=== PATIENT | male | born 1950 | race Caucasian/White ===

== ENCOUNTER 2018-06-27 13:14 | Day surgery (SDC) | payer OTHER ==
[2018-06-27] MEDS ORDERED: LIDOCAINE 1% 2 ML INJ ID PRN (13:52)
[2018-06-27] MEDS ORDERED: LR 1,000 ML IV ONE (13:52)
[2018-06-27] MEDS ORDERED: BUPIVACAINE/EPI 0.5% 30 ML SDV ONE (14:50)
[2018-06-27] MEDS ORDERED: IOPAMIDOL (ISOVUE-M 300) 15 ML VIAL ONE (14:51)
[2018-06-27] MEDS ORDERED: ceFAZolin 2 GM/DEXTROSE 100 ML IV ONE (15:20)
--- NOTE | 2018-06-27 15:21 | PDHPUP ---
History & Physical Update H&P update statement: This history and physical update is based on an assessment of the patient which was completed after admission or registration (within 24 hours), but prior to the surgery/procedure. H&P update: H&P reviewed & patient examined, no change in patient's condition since H&P completed
--- NOTE | 2018-06-27 15:21 | PDANEPAE ---
ANE Past Medical History - Cardiovascular History Hx Hypertension: Yes Hx CHF / Valvular Disease: Yes Cardiovascular History Comment: av [id number] - Pulmonary History Hx Asthma/Reactive Airway Disease: Yes Hx Sleep Apnea: No - Renal History Hx Renal Disorders: Yes ANE Review of Systems Review of Systems: ANE Patient History - Allergies Allergies/Adverse Reactions: hydrochlorothiazide Allergy (Verified 06/27/18 13:51) - Home Medications Home Medications: Albuterol 06/27/18 [Last Taken 06/27/18] Amlodipine Besylate 06/27/18 [Last Taken 06/27/18] Atorvastatin Calcium 06/27/18 [Last Taken 06/26/18] Furosemide 06/27/18 [Last Taken 06/27/18] Losartan Potassium 06/27/18 [Last Taken 06/26/18] Pantoprazole Sodium 06/27/18 [Last Taken 06/27/18] Silodosin 06/27/18 [Last Taken 06/26/18] Spironolactone 06/27/18 [Last Taken 06/27/18] Topiramate 06/27/18 [Last Taken 06/27/18] Warfarin Sodium 06/27/18 [Last Taken 06/20/18] oxyCODONE IR 06/27/18 [Last Taken 06/26/18] - NPO status NPO Since - Liquids (Date): 06/27/18 NPO Since - Liquids (Time): 08:00 NPO Since - Solids (Date): 06/27/18 NPO Since - Solids (Time): 06:30 ANE Labs/Vital Signs - Vital Signs Blood Pressure: 152/79 Heart Rate: 52 Respiratory Rate: 18 O2 Sat (%): 100 Height: 187.96 cm Weight: 90.718 kg ANE Physical Exam - Airway Mallampati Score: Class 1 - ASA Status ASA Status: III ANE Anesthesia Plan Anesthesia Plan: general endotracheal anesthesia
[2018-06-27] MEDS ORDERED: fentaNYL 100 MCG/2 ML INJ ONE ×3 (15:25→17:27)
[2018-06-27] MEDS ORDERED: PROPOFOL 200 MG/20 ML VIAL ONE (15:25)
[2018-06-27] MEDS ORDERED: ONDANSETRON 4 MG/2 ML VIAL ONE (15:26)
[2018-06-27] MEDS ORDERED: ROCURONIUM 50 MG/5 ML VIAL ONE (15:26)
[2018-06-27] MEDS ORDERED: METOCLOPRAMIDE 10 MG/2 ML VIAL ONE (15:26)
[2018-06-27] MEDS ORDERED: MIDAZOLAM 2 MG/2 ML VIAL ONE (15:28)
[2018-06-27] MEDS ORDERED: SUGAMMADEX SODIUM 200 MG/2 ML VIAL IVP ONE (16:37)
--- NOTE | 2018-06-27 16:50 | SUROPNOTE ---
[facility] Operative Report - Surgery Date: 06/27/18 Pre-operative Diagnosis: T8 Vertebral Compression Fracture Post-operative Diagnosis: Same Procedures: T8 Kyphoplasty T8 Vertebral body biopsy Surgeon: Adrian Horton MD Anesthesia: General endotracheal anesthesia Findings: As expected Estimated Blood Loss: 1mL Drains: None Specimens: Vertebral bone biopsy Complications: None Condition: Transferred to PACU in stable condition Implants: Medtronic Kyphon kyphoplasty system, bilateral Indications: The patient sustained a compression fracture, diagnosed by radiographic imaging. I have explained all options of treatment for the patient, and the patient has elected to proceed with operative management after having failed all conservative options. I have explained all risks, benefits, and alternatives of the proposed procedure. The risks that we have discussed include , paralysis blindness, extravasation of cement, nerve damage, infection, dural tear, failure of surgery to alleviate pre-operative symptoms, and possible need for further operation. In addition to the aforementioned procedure, I also discussed with the patient that other procedures may be indicated during the course of surgery that would be considered in the patients best interest. The patient has expressed understanding of this. Pre-operative: The proposed incision site was marked in the pre-operative holding area by me. The patient was then taken to the operating room in stable condition. Following smooth induction of general anesthesia, the patient was positioned prone on a Marcell table in mild reverse Trendelenburg with all down surfaces well-padded. The patient was then prepped and draped in the usual sterile fashion. Pre- operative antibiotics were administered within one hour of the incision. A surgical timeout was performed, and all parties involved in the procedure were in agreement on the correct patient, location, and procedure to be performed. Spinal pause: A needle was used with AP and lateral fluoroscopy to identify the operative level. The appearance of the vertebra on lateral xray was apparent due to the degree of compression. The operative level was also identified by counting up from a prior compression fx at T11. A secondary spinal pause was then performed , and the level was confirmed with all parties participating in the operation. The skin was marked for the proposed incision. Surgical approach: The skin was then incised sharply through the dermis. The trocar was then introduced into the pedicle based on fluoroscopy. At this time the trocar was then passed into the pedicle past the level of the posterior endplate of the vertebral body. This was subsequently removed and the docking trocar was left in place. A hand drill was then used to create a channel to the anterior vertebral endplate. The drill was then subsequently removed. A smooth trocar was then introduced to remove any bony debris or trabeculae that might compromise the balloon. Vertebral body biopsy: A hollow core biopsy device was then tamped into the vertebral body. The needle was then drawn back, and a core biopsy of good quality was obtained. This was sent for pathology. Cementation: A Rapid V[employer]tr[employer] Kyphon balloon was then introduced into the channel that was created from the trocar. In similar fashion, the contralateral balloon was introduced as well. The balloons were then inflated in alternating fashion and this was monitored by fluoroscopy to ensure proper endplate height confucianism. They were inflated up on each side, and the amount of contrast was recorded.Final radiographs confirmed proper vertebral height confucianism. The balloons were then removed. Cement was then injected into the vertebral body through the cavity created by the balloon. Fluoroscopic confirmation was performed done every 0.5 mL to confirm that none of the cement had extravasated posteriorly or passed any of the endplates. Once the cement was allowed to harden, this was confirmed by probing them directly. All incisions were then removed and final x-rays were taken and there was no pathologic placement of cement. Taoism of vertebral height was maintained throughout the case. Closure: Sterile glue was then applied to the trocar sites. A sterile island dressing was applied over the surgical incision. A surgical count was performed before initiation of closure and following the procedure, and all were correct. I was present for the entire procedure. Recovery: The patient was extubated uneventfully in the operating room. The patient was taken to the recovery room in stable condition. Sequential compression devices for VTE prophylaxis were applied to the patients lower extremities, and were ordered to be used while the patient was non-ambulatory. Chemical VTE prophylaxis was considered to be contraindicated for this patient because of the risk of bleeding near the epidural space. Rajeev Horton MD
[2018-06-27] MEDS ORDERED: LR 500 ML IV PRN (16:52)
[2018-06-27] MEDS ORDERED: ALBUTEROL 3 ML DEYVIAL IH PRN (16:52)
[2018-06-27] MEDS ORDERED: NALOXONE HCL 0.4 MG/ML INJ IVP PRN (16:52)
--- NOTE | 2018-06-27 16:53 | POSTANESTH ---
Post Anesthetic Evaluation Cardiovascular Status: Similar to Pre-Op Cond Respiratory Status: Similar to Pre-op Cond. Level of Consciousness/Mental Status: Can Participate in Eval Pain Control: Adequate, Prn Tx Ordered Nausea/Vomiting Control: Adequate, Prn Tx Ordered Complications Possibly Related to Anesthesia: None Noted
[2018-06-27] MEDS: fentaNYL 100 MCG/2 ML INJ IVP PRN ×4 (17:01→18:09)
[2018-06-27] MEDS ORDERED: oxyCODONE IR 5 MG TAB PO ONE (18:15)
[2018-06-27] MEDS ORDERED: ACETAMINOPHEN 325 MG TAB PO ONE (18:15)
[2018-06-27 18:47] VITALS: BP 136/90
== END 2018-06-27 19:00 | disposition home or self-care (01) ==
LOC: FSGY 13:14
PROVIDERS: ATTEND Orthopaedic Surgery Orthopaedic Surgery of the Spine
DX: M80.08XA Age-related osteoporosis with current pathological fracture, vertebra(e), initial encounter for fracture (principal); J45.909 Unspecified asthma, uncomplicated; K21.9 Gastro-esophageal reflux disease without esophagitis; M06.9 Rheumatoid arthritis, unspecified; Z87.311 Personal history of (healed) other pathological fracture; Z95.2 Presence of prosthetic heart valve; Z86.79 Personal history of other diseases of the circulatory system
CPT/HCPCS: C1713; J0690; J2250; J2405; J2704; J2765; J3010; Q9967

== ENCOUNTER 2018-07-03 15:43 | Inpatient (IN) | payer OTHER ==
[2018-07-03] MEDS ORDERED: VANCOMYCIN 1 GM VIAL ONE (15:51)
[2018-07-03] MEDS ORDERED: BUPIVACAINE 0.25% 10 ML SDV ONE (15:51)
[2018-07-03] MEDS ORDERED: BACITRACIN 50,000 UNITS/10 ML SYR IRR ONE ×2 (15:52→16:23)
[2018-07-03] MEDS ORDERED: BUPIVACAINE/EPI 0.25% 30 ML SDV ONE ×3 (15:54→17:46)
[2018-07-03] MEDS ORDERED: LR 1,000 ML IV ONE (16:20)
[2018-07-03] MEDS ORDERED: BUPIVACAINE/EPI 0.5% 30 ML SDV ONE (16:22)
[2018-07-03] MEDS ORDERED: CHLORHEXIDINE GLUC HIBICLENS 118 ML BTL TP ONE (16:22)
[2018-07-03] MEDS ORDERED: AVITENE POWDER 1 GM JAR TP ONE (16:22)
[2018-07-03] MEDS ORDERED: THROMBIN (BOVINE) 5,000 UNIT VIAL TP ONE (16:22)
[2018-07-03] MEDS ORDERED: MIDAZOLAM 2 MG/2 ML VIAL IVP ONE (16:28)
[2018-07-03] MEDS ORDERED: LR 500 ML IV PRN ×2 (16:32→17:59)
[2018-07-03] MEDS ORDERED: NALOXONE HCL 0.4 MG/ML INJ IVP PRN ×3 (16:32→22:31)
[2018-07-03] MEDS ORDERED: PROMETHAZINE HCL 25 MG/ML INJ IVP PRN (16:32)
[2018-07-03] MEDS ORDERED: ACETAMINOPHEN 500 MG TAB PO PRN ×2 (16:32→17:59)
[2018-07-03] MEDS ORDERED: oxyCODONE IR 5 MG TAB PO PRN ×2 (16:32→17:59)
[2018-07-03] MEDS ORDERED: HYDROmorphONE/DILAUDID 2 MG/ML INJ IVP PRN (16:32)
[2018-07-03] MEDS ORDERED: ONDANSETRON 4 MG/2 ML VIAL IVP PRN ×3 (16:32→21:33)
[2018-07-03] MEDS ORDERED: DEXAMETHASONE 4 MG/ML VIAL IVP PRN ×2 (16:32→17:59)
[2018-07-03] MEDS ORDERED: HYDROCODONE/APAP 5/325 TAB PO PRN ×2 (16:32→17:59)
[2018-07-03] MEDS ORDERED: fentaNYL 100 MCG/2 ML INJ IVP PRN ×2 (16:32→17:59)
[2018-07-03] MEDS ORDERED: NS 500 ML IV PRN ×2 (16:32→17:59)
[2018-07-03] MEDS ORDERED: ALBUTEROL 3 ML DEYVIAL IH PRN ×2 (16:32→17:59)
--- NOTE | 2018-07-03 16:32 | PDANEPAE ---
ANE History of Present Illness here for Thoracic hematoma evacuation ANE Past Medical History - Cardiovascular History Hx Hypertension: Yes Hx Arrhythmias: No Hx Chest Pain: No Hx Coronary Artery / Peripheral Vascular Disease: No Hx CHF / Valvular Disease: Yes Cardiovascular History Comment: av [id number] - Pulmonary History Hx Asthma/Reactive Airway Disease: Yes Hx Sleep Apnea: No - Renal History Hx Renal Disorders: Yes - Liver History Hx Hepatic Disorders: No - Neurological & Psychiatric Hx Hx Neurological and Psychiatric Disorders: No ANE Review of Systems Review of systems is: negative Review of Systems: - Exercise capacity Exercise capacity: >=4 METS ANE Patient History - Allergies Allergies/Adverse Reactions: hydrochlorothiazide Allergy (Verified 06/27/18 13:51) - Home Medications Home medications: home medication list seen and reviewed Home Medications: Albuterol 06/27/18 [Last Taken 06/27/18] Amlodipine Besylate 06/27/18 [Last Taken 06/27/18] Atorvastatin Calcium 06/27/18 [Last Taken 06/26/18] Furosemide 06/27/18 [Last Taken 06/27/18] Losartan Potassium 06/27/18 [Last Taken 06/26/18] Pantoprazole Sodium 06/27/18 [Last Taken 06/27/18] Silodosin 06/27/18 [Last Taken 06/26/18] Spironolactone 06/27/18 [Last Taken 06/27/18] Topiramate 06/27/18 [Last Taken 06/27/18] Warfarin Sodium 06/27/18 [Last Taken 06/20/18] oxyCODONE IR 06/27/18 [Last Taken 06/26/18] - NPO status NPO Status: no food or drink >8 hours ANE Labs/Vital Signs - Vital Signs Vital Signs: reviewed preoperatively; see RN documention for details ANE Physical Exam - Airway Neck exam: FROM Mallampati Score: Class 2 Mouth exam: normal dental/mouth exam - Pulmonary Pulmonary: no respiratory distress - Cardiovascular Cardiovascular: regular rate and rhythym - ASA Status ASA Status: III ANE Anesthesia Plan Anesthesia Plan: general endotracheal anesthesia
[2018-07-03] MEDS ORDERED: PROPOFOL/EMULSION 500 MG/50 ML BOTTLE IV ONE ×2 (16:37→17:53)
[2018-07-03] MEDS ORDERED: ROCURONIUM 50 MG/5 ML VIAL ONE (16:40)
[2018-07-03] MEDS ORDERED: fentaNYL 100 MCG/2 ML INJ ONE ×3 (16:40→20:50)
[2018-07-03 16:41] LABS: PLATELET COUNT 217 10^3/uL (150-400)
[2018-07-03] MEDS ORDERED: TRANEXAMIC ACID 1,000 MG in NS 100 ML IV ONE (16:44)
[2018-07-03] MEDS ORDERED: ceFAZolin 2 GM/DEXTROSE 100 ML IV ONE (16:44)
[2018-07-03] MEDS ORDERED: CEFAZOLIN 2 GM/DEXTROSE/100 ML BAG IV ONE (16:45)
--- NOTE | 2018-07-03 16:46 | PDHPUP ---
History & Physical Update H&P update statement: This history and physical update is based on an assessment of the patient which was completed after admission or registration (within 24 hours), but prior to the surgery/procedure. H&P update: H&P reviewed & patient examined, changes noted (Pt has been diagnosed with an epidural hematoma. He has been indicated for a laminectomy from T6 to T11 and will move forward with emergent surgery tonight.)
[2018-07-03 16:49] LABS: INR 1.39 (0.83-1.16); PROTIME(PATIENT) 17.2 SEC (12.0-15.0)
[2018-07-03] MEDS ORDERED: SURGIFLO MATRIX KIT WITH THROMBIN 8 ML TP ONE ×3 (17:01→20:00)
[2018-07-03] MEDS ORDERED: LABETALOL HCL 5 MG/ML 20 ML MDV IVP PRN (17:59)
[2018-07-03] MEDS ORDERED: *IRR*TRANEXAMIC ACID 3,000 MG/NS 50 ML IRR ONE (18:00)
[2018-07-03] MEDS ORDERED: PROPOFOL 200 MG/20 ML VIAL ONE ×5 (18:54→19:42)
[2018-07-03 19:08] LABS: PLATELET COUNT 207 10^3/uL (150-400)
[2018-07-03] MEDS ORDERED: REMIFENTANIL HCL 1 MG VIAL ONE (19:44)
[2018-07-03] MEDS ORDERED: ceFAZolin 1 GM VIAL ONE ×2 (19:45)
[2018-07-03] MEDS ORDERED: ePHEDrine SULFATE 25 MG/5 ML SYR ONE (21:02)
[2018-07-03] MEDS ORDERED: diphenhydrAMINE 25 MG CAP PO PRN (21:33)
[2018-07-03] MEDS ORDERED: BISACODYL 10 MG SUPP PR PRN (21:33)
[2018-07-03] MEDS ORDERED: LACTULOSE 20 GM/30 ML UDCUP PO PRN (21:33)
[2018-07-03] MEDS ORDERED: ONDANSETRON DISINTEGRATING 4 MG TAB PO PRN (21:33)
--- NOTE | 2018-07-03 21:50 | POSTANESTH ---
Post Anesthetic Evaluation Cardiovascular Status: Normal, Stable Respiratory Status: Normal, Stable Level of Consciousness/Mental Status: Can Participate in Eval Pain Control: Adequate, Prn Tx Ordered Nausea/Vomiting Control: Adequate, Prn Tx Ordered Complications Possibly Related to Anesthesia: None Noted
--- NOTE | 2018-07-03 21:55 | SUROPNOTE ---
[facility] Operative Report - Surgery Date: 07/03/18 Pre-operative Diagnosis: L > R leg weakness s/p T8 kyphoplasty, epidural hematoma Post-operative Diagnosis: dural tear, T6-T11 subdural hematoma Procedure: Open T6-T11 laminectomy, evacuation of thoracic subdural hematoma, repair of dural tear Use of intra-operative fluoroscopy Use of a surgical microscope Surgeons: Adrian Horton MD; Skip Benson (co-surgeon) Public Relations Coordinator: Pauline Small Anesthesia: General endotracheal anesthesia Findings: dural tear, T6-T11 subdural hematoma Estimated Blood Loss: 1500mL Drains: Hemovac sewn to skin Specimens: hematoma Complications: None Condition: Transferred to ICU Implants: None Indications: This patient was seen and examined by me today and diagnosed with a likely epidural hematoma 1 week following a kyphoplasty procedure. I have explained all options of treatment for the patient, and the patient has elected to proceed with operative management. I have explained all risks, benefits, and alternatives of the proposed procedure. The risks that we have discussed include , blindness, nerve damage, infection, dural tear, failure of surgery to alleviate pre-operative symptoms, and possible need for further operation. In addition to the aforementioned procedure, I discussed with the patient that other procedures may be indicated during the course of surgery that would be considered in the patients best interest. The patient expressed understanding of this. Pre-operative: The proposed incision site was marked in the pre-operative holding area by me. The patient was then taken to the operating room in stable condition. Following smooth induction of general anesthesia, the patient was positioned prone on a Marcell table in mild reverse Trendelenburg with all down surfaces well-padded. The patient was then prepped and draped in the usual sterile fashion. Pre- operative antibiotics were administered within one hour of the incision. A surgical timeout was performed, and all parties involved in the procedure were in agreement on the correct patient, location, and procedure to be performed. Approach: The proposed levels were identified using C-arm fluoroscopy and the skin was marked for the proposed incision. The skin was then incised sharply through the dermis, roughly centered on the T8 incisions from the prior incision. Electrocautery was used to dissect the subdermal fat layer down to fascia and to coagulate bleeding vessels. Secondary pause: Two Brandi clamps were then placed on the spinous processes at both ends of the dissection. A lateral radiograph to identify the associated anatomy, and a small piece of bone from the associated spinous processes was removed for identification (these were noted to be T7 and the interspace between T10 and T11 , respectively). A secondary spinal pause was then performed, and the level was confirmed with all parties participating in the operation. Decompression: Based on presurgical imaging, a left hemilaminectomy of T6-11 was carried out. All paraspinal muscles were dissected sub-periostally from the spinous processes and laminae. The dissection was then carried out to include the extent of decompression that was determined before surgery, with care being taken to preserve all facet capsules. The lateral pars was identified for all levels to be included in the proposed decompression. Using a combination of rongeur, jerry, and Kerrison rongeurs, the spinous processes and laminae were removed at all levels to the subarticular lateral recess. Care was taken to leave a minimum of 8mm of bone from the lateral border of the pars at each decompressed level. The ligamentum flavum was resected at all levels. At this time, only a small amount of epidural clot was noted at the T8 level. Further careful inspection was carried out and a small durotomy was noted at the T8 level on the left. This was probed, and gross clot was visible within the epidural space. At this time, I called Dr. Skip Benson to discuss the best course moving forward. He recommended a full laminectomy at the affected levels. In total, the complete laminae were removed from T7 to T10; the cephalad half of the T11 vertebra and caudal half of T6 vertebra were removed to allow for adequate decompression. At this time, a ball probe was used to probe all foraminae at the affected levels. Evacuation of subdural hematoma and dural repair: For this portion of the procedure, please see Dr. Benson's separate operative report. Closure: The surgical field was then copiously irrigated with sterile saline. Vancomycin powder was then applied to the surgical field. A small drain was placed deep to the fascia and brought out of the skin superior and laterally. The drain was then sewn to skin. #1 braided and absorbable interrupted sutures were used to repair the fascia. Then 2-0 monofilament interrupted sutures were used to repair the dermal layer, and a separate 3-0 monofilament suture was used to repair the subcutaneous layer in a running fashion. All sutures used were absorbable. Topical adhesive was then applied to the skin and allowed to dry. A sterile island dressing was applied over the surgical incision. A surgical count was performed before initiation of closure and following the procedure, and all were correct. I was present for all portions of the procedure. Neuromonitoring: SSEP, MEP and EMG were used throughout the case from incision until closure. There was substantial improvement in the left lower extremities changes compared to their pre-surgical baseline levels before surgical closure was initiated for both SSEP and MEP modalities. Surgical microscope use: A surgical microscope was utilized throughout the decompressive portion of this case. This was deemed necessary for safe and accurate surgical decompression of affected nerve roots. video production assistant: A salesperson surgical appliances was used throughout the case, and deemed necessary for safe neural retraction, hemostasis, and suction. Recovery: The patient was extubated uneventfully in the operating room. The patient was taken to the recovery room in stable condition. Sequential compression devices for VTE prophylaxis were applied to the patients lower extremities, and were ordered to be used while the patient was non-ambulatory. Chemical VTE prophylaxis was considered to be contraindicated for this patient because of the risk of bleeding near the epidural space. Rajeev Horton MD
[2018-07-03] MEDS: NS 1,000 ML IV SCH (21:56)
[2018-07-03] MEDS: morphINE PCA 30 MG/30 ML PCA IV PRN (22:44)
[2018-07-03] MEDS: GABAPENTIN 300 MG CAP PO SCH (22:48)
[2018-07-03] MEDS: ACETAMINOPHEN 500 MG TAB PO SCH (22:48)
[2018-07-03] MEDS: DEXAMETHASONE 4 MG/ML VIAL IV SCH (23:51)
[2018-07-03] MEDS: DIAZEPAM 5 MG/ML 1 ML SYR IVP PRN (23:51)
[2018-07-04] MEDS: METHOCARBAMOL 750 MG TAB PO PRN ×3 (01:38→22:22)
[2018-07-04] MEDS: ceFAZolin 2 GM/DEXTROSE 100 ML IV SCH ×2 (05:18→11:43)
[2018-07-04] MEDS: ACETAMINOPHEN 500 MG TAB PO SCH ×3 (05:35→23:00)
[2018-07-04] MEDS: GABAPENTIN 300 MG CAP PO SCH ×2 (05:35→13:50)
[2018-07-04] MEDS: DEXAMETHASONE 4 MG/ML VIAL IV SCH ×3 (05:35→18:44)
[2018-07-04 05:37] LABS: PLATELET COUNT 184 10^3/uL (150-400)
[2018-07-04 05:44] LABS: INR 1.85 (0.83-1.16); PROTIME(PATIENT) 21.4 SEC (12.0-15.0)
--- NOTE | 2018-07-04 07:27 | GOP ---
DATE OF OPERATION: 07/03/2018 SURGEON: Skip Benson MD ANESTHESIA: General. PREOPERATIVE DIAGNOSIS: T6-7 through T10-11 subdural hematoma with spinal cord compression and progr essive neurological deficit. POSTOPERATIVE DIAGNOSIS: T6-T7 through T10-T11 subdural hematoma with spinal cord compression and pr ogressive neurological deficit. PROCEDURE PERFORMED: 1. Intradural hematoma evacuation from caudal T6 to cranial T11 levels with spinal cord decompressio n. 2. Use of intraoperative neuromonitoring. 3. Use of intraoperative fluoroscopy, less than 1 hour physician time. 4. Use of intraoperative microscope. FINDINGS: SPECIMENS: The clot was sent to Pathology for permanent analysis. ESTIMATED BLOOD LOSS: 1500 mL. INDICATIONS: The patient is a 68-year-old gentleman who is status post a T8 kyphoplasty. He apparen tly developed rapid onset of progressive paralysis in the lower extremities. Imaging studies demonst rated a compressive lesion within the subdural space from T6-7 to T10-11 levels. The patient was juanito en to the operating theater by Dr. Horton for surgical evacuation of presumed epidural hematoma. At the time of the surgical evaluation, it was found to be subdural for which a neurosurgical consultati on was requested. Dr. Horton will dictate in a separate operative report the exposure and the closur e for this surgery. DESCRIPTION OF PROCEDURE: The patient was asleep and prone in the operating room theater. Dr. Audrey hawk then completed a decompressive laminectomy from the T6-7 level to the T10-11 level which will be di ctated in a separate operative report. At this point, I reviewed the MRI scan as well, and we mallorie t the microscope into the field to assist with microscopic dissection and maintain illumination and m agnification. At this point, the midline of the thecal sac was opened using the 11 blade. Using the Turpin scissors and dural pickups, we then opened the thecal sac to the T6-7 level down to the T10-11 level. There was organized and very firm clot on the left side with compression of the thecal sac t o the right side. Using very careful microsurgical technique and careful dissection, I then peeled t he hematoma off the thecal sac both in the cranial and caudal directions till we had good decompressi on of the intradural space. There were no active bleeders that I could identify. We placed some Trav gicel and Surgifoam over the space and gave it some time. We then irrigated this area. Very small b its of adherent clot were left on the thecal sac so as not to manipulate anymore. Once we had remove d the clot from the intradural space, the patient's motors and sensories improved. At this point, we then closed the dura in a running tight fashion with a 5-0 Prolene stitch. There was a small dural hole on the left side at the level of the T8 level near the kyphoplasty opening which I then placed 1 small pursestring suture with a Prolene stitch as well. The wound was irrigated copiously with baci tracin irrigation. We then placed a small layer of Surgicel and DuraSeal over the dural closure. At this point, a drain was left in the subfascial space. I elected not to place a lumbar drain given t he location of the dural opening and the watertight closure. Dr. Horton will then dictate in a separ ate operative report the closure of the wound. COMPLICATIONS: None. CO-SURGEON: Adrian Horton MD. /[id number]/MODL
--- NOTE | 2018-07-04 07:37 | GCON ---
INTRAOPERATIVE CONSULTATION NOTE DATE OF CONSULTATION: 07/03/2018 REASON FOR CONSULTATION: Thoracic subdural hematoma status post kyphoplasty with progressive paralys is. HISTORY OF PRESENT ILLNESS: Please note the following information was obtained from Dr. Horton as no t able to obtain from the patient himself. This is an otherwise fairly healthy 68-year-old gentleman who developed a compression fracture and acute onset of back pain. He subsequently underwent a T8 k yphoplasty by Dr. Horton several days ago. The patient apparently started his anticoagulation sooner than recommended and after a few days, developed rapid onset of progressive lower extremity paralysi s. He was evaluated and imaging studies demonstrated a hematoma with compression of the spinal cord, extending from approximately T6 through T11 levels. At that point, Dr. Horton brought the patient t o the operating theater for surgical evacuation. Intraoperatively, it was found that the hematoma wa s not epidural, but was in fact, intradural for which a neurosurgical consultation was requested. PAST MEDICAL HISTORY: 1. Hypertension. 2. Congestive heart failure. 3. Asthma. 4. Renal disorder. MEDICATIONS: 1. Albuterol. 2. Amlodipine. 3. Atorvastatin. 4. Lasix. 5. Losartan. 6. Pantoprazole. 7. Silodosin. 8. Spironolactone. 9. Topiramate. 10. Warfarin. 11. Oxycodone. ALLERGIES: Hydrochlorothiazide. PAST SURGICAL HISTORY: 1. AV replacement, 2001. 2. T8 kyphoplasty a few days ago. FAMILY HISTORY: Unknown and cannot be obtained secondary to the patient's inability to participate. REVIEW OF SYSTEMS: Unknown and cannot be obtained secondary to the patient's inability to participat e. SOCIAL HISTORY: Unknown and cannot be obtained secondary to the patient's inability to participate. PHYSICAL EXAMINATION: There is currently no physical examination possible secondary to the patient b eing in the operating room, currently under general anesthetic. MEDICAL DECISION MAKING: Patient underwent a thoracic spine MRI completed at [facility] ich was reviewed by me. There is evidence of a compressive lesion which appears to be intradural ext ending from approximately the T6-T7 level to the T10-T11 level with spinal cord signal changes and ed sandy. There is evidence of kyphoplasty bone cement within the T8 vertebral body. ASSESSMENT/PLAN: This patient is a 68-year-old gentleman who is status post T8 kyphoplasty with prog ressive bilateral lower extremity paralysis. Imaging studies demonstrate what appears to be a subdur al hematoma extending from the T6-T7 level to approximately T10-T11 with progressive lower extremity paralysis. The patient was already in the operating theater for emergent surgical evacuation decompr ession. Neurosurgical consultation is requested to assist with a subdural hematoma evacuation. No c onsents could be obtained for this portion of my surgery given the fact this was an intraoperative co nsultation. /[id number]/MODL
[2018-07-04] MEDS ORDERED: PHENYLEPHRINE HCL 50 MG in NS 250 ML IV SCH ×2 (08:00→12:00)
[2018-07-04] MEDS: NS 1,000 ML IV SCH ×2 (08:30→18:34)
--- NOTE | 2018-07-04 08:38 | NEUSURGPN ---
Assessment/Plan: A/P:POD#1 sp evacuation of T6-T11 intradural hematoma. Overall exam much improved, legs 5/5 this morning. Pain being managed well P: -Recommend two more doses of steroids -Continue HOB flat today, will start raising HOB by 10 degrees an hour tomorrow am -Continue GLORIA to thumbprint suction only -MRI T spine today to evaluate cord -Continue to drive pressures, can use Brandon if needed -Ok for SDU status -Discussed with Dr. Benson S: Patient doing well. Pain tolerable. Much improvement in leg strength this am from preop. O: NAD, VSS CN II-XII grossly intact PERRL, EOMI BLE 5/5= hamstrings, quad, DF, PF, EHL, HF Catheter Insertion Date: 07/03/18 - Physician Discussed Patient with : Kelley Neurosurgery Physical Exam - Vitals, I&O, Labs I and O 07/03/18 07/04/18 07/05/18 05:59 05:59 05:59 Intake Total 1822 Output Total 1060 Balance 762 Weight 90.718 kg Intake: Oral (ml) 1000 IV Infused (ml) 822 Ns 1,000 ml @ 100 mls/hr 822 IV CONT FELIPE Rx#: [id number] Output: Urine (ml) 1050 Catheter 1050 GLORIA Drain Output (ml) 10 Back Marcell Ortega 10 Vital Signs Temp Pulse Resp BP Pulse Ox 36.8 C 65 8 L 138/72 H 100 07/04/18 08:00 07/04/18 08:00 07/04/18 08:00 07/04/18 08:00 07/04/18 08:00 Laboratory Results 07/04/18 05:25 07/04/18 05:25 ICD10 Worksheet Patient Problems: Problems Problem Status Onset Subdural hematoma of neuraxis Acute - ICD10 Problem Qualifiers (1) Subdural hematoma of neuraxis
[2018-07-04] MEDS: FAMOTIDINE 20 MG TAB PO SCH ×2 (09:03→21:06)
[2018-07-04] MEDS: SENNOSIDES/DOCUSATE SODIUM TAB PO SCH ×2 (09:03→21:06)
--- NOTE | 2018-07-04 09:52 | GPROG ---
I saw and evaluated Fabian this morning. Overall, he is doing quite well, with dramatic improvement compared to before the operation. PHYSICAL EXAMINATION: SKIN: His drain is clean, dry, and intact and left in place. Dressing has so me mild drainage but is overall looking good. NEUROLOGIC: On physical examination, he has at least 4+/5 strength throughout both lower extremities and is grossly intact globally, limited by positionin g. Deep tendon reflexes are 1+ and symmetric throughout. Clonus is absent. Babinski is negative. IMPRESSION: Postoperative day 1, status post evacuation of subdural hematoma; laminectomies, T6 to T 11. ASSESSMENT/PLAN: From my perspective, this is obviously a huge success for the patient as he has rec overed rather dramatically. Moving forward, we will keep him in bed all day for the entire day and p robably get him up tomorrow. We will continue him on steroids, 6 mg of dexamethasone IV every 6 hour s. Will maintain the patient on a regular diet. Will maintain his head of bed flat. Will give him perioperative antibiotics. At this time, we will defer DVT prophylaxis obviously as the patient has a tendency to bleed. We also have an MRI ordered for this morning as well to assess the extent of th e decompression. I have discussed the case with Dr. Skip Benson, who is also involved in the case and may add further recommendations following his personal evaluation today. /[id number]/MODL
--- NOTE | 2018-07-04 10:11 | PDMN ---
Medical Necessity Medical necessity: [facility] Neurosurgery or Procedure GR yo w/ T6-7 through to T10-11 subdural hematoma w/ spinal cord compression and progressive neuro deficit, s/p intradural hematoma evacuation from caudal T6-cranial Y11 w/ spinal cord decrompression. Meets [facility] admit IP status to ICU for frequent neuro checks, IV pressors, IV anitbx, IV fluids and IV opioid pain management w/ CLINICAL COUNSELOR.
[2018-07-04] MEDS: morphINE PCA 30 MG/30 ML PCA IV PRN (11:40)
--- NOTE | 2018-07-04 11:57 | ASMTCASEMG ---
Living Arrangements What is your living Answers: With Spouse arrangement? Who do you live with? Type Of Residence What kind of residence do Answers: House you live in? Discharge Plan Comments Coordination Status Comments Notes: Patient is a 68yo male who comes to [facility] for an intradural hematoma evacuation from caudal T6 to cranial T11 levels with spinal cord decompression. OT/PT have been ordered for the patient. D/C plan TBD. CM will follow. Date Signed: 07/04/2018 11:56 AM Electronically Signed By:Corina Levi LCSW
--- NOTE | 2018-07-04 15:09 | GPROG ---
I have seen and evaluated the patient's MRI. I have also discussed the findings with Dr. Nayan Angulo. There is clearly as far as I can tell no evidence of obvious subdural hematoma. There is s ome mass effect from what I think is probably just postsurgical changes. I do not think this is any sort of high-pressure epidural hematoma. Although there are certainly areas of compression, I think this is largely consistent with what we would expect for immediate postsurgical changes in the thorac ic spine. We will keep the drain in at this point. I also discussed the findings further with Dr. Radha rojas who is also involved in the case. /[id number]/MODL
--- NOTE | 2018-07-04 16:05 | GCON ---
PROP AND SCENERY MAKER CONSULTATION REASON FOR CONSULTATION: Patient examined postoperatively after receiving spine surgery. HISTORY OF PRESENT ILLNESS: The patient is a very pleasant 68-year-old white male with a past medica l history of arthritis, asthma, gastroesophageal reflux disease, rheumatoid arthritis, migraines, ost eoporosis, kidney and heart disease. Again, he is examined postoperatively after receiving a T6 to L 11 laminectomy, evacuation of a thoracic subdural hematoma, and repair of a dural tear. In discussio n with the patient, he states overall he is doing reasonably well. He states his pain is well contro lled. He denies any chest pain, pleuritic-type chest pain or angina equivalent. There is no cough o r productive sputum. He denies any fever or night sweats. His pain is well controlled. PAST MEDICAL HISTORY: Again, significant for rheumatoid arthritis, asthma, gastroesophageal reflux d isease, migraines, osteoporosis. He also has a history of aortic valve replacement and IgA nephropat hy. SOCIAL HISTORY: Previous smoker, none for over 50 years. He denies any significant alcohol use. Wo rk history: Is a retired contractor. He is , with children. He has lived in [place] all of his life. ALLERGIES: Hydrochlorothiazide. REVIEW OF SYSTEMS: Ten-point review of systems is performed and negative, except for what is listed in HPI. PHYSICAL EXAM: VITAL SIGNS: Blood pressure 130/63, pulse 72, respirations 20. He is afebrile. Oxy gen saturation 99% on 4 L. GENERAL: He is a well-developed, well-nourished, elderly white male who is resting comfortably, in no acute distress. HEENT: Eyes are PERRL, EOMI. Throat shows no erythem a or tonsillar hypertrophy. NECK: Supple. There is no cervical adenopathy. HEART: Regular rate a nd rhythm, without murmurs, rubs, or gallops. LUNGS: Clear to auscultation. No wheeze or rhonchi. ABDOMEN: Soft, nontender. Bowel sounds are present in all 4 quadrants. EXTREMITIES: No clubbing, cyanosis, or edema. LABORATORIES: White count is 8.2, hemoglobin 9.2, hematocrit 27, platelet count 184. INR is 1.85. Sodium 140, potassium 3.8, chloride 108. CO2 is 24. BUN is 20, creatinine 1.1. Glucose is 126. IMPRESSION: 1. Back pain. 2. Status post T6 through T11 laminectomy with evacuation of thoracic dural hematoma and repair of a dural tear. 3. Gastroesophageal reflux disease. 4. History of aortic valve replacement. 5. IgA nephropathy. 6. History of migraines. 7. History of rheumatoid arthritis. RECOMMENDATIONS: 1. Adequate pain control. 2. Follow BUN and creatinine closely. 3. Continue the majority of his home medications. 4. DVT and PE prophylaxis, holding anticoagulation for now. 5. Stress ulcer prophylaxis. 6. PT and OT. /[id number]/MODL
[2018-07-04] MEDS: GABAPENTIN 400 MG CAP PO SCH (21:06)
[2018-07-05] MEDS: DIAZEPAM 5 MG/ML 1 ML SYR IVP PRN (05:48)
[2018-07-05] MEDS: ACETAMINOPHEN 500 MG TAB PO SCH ×3 (05:49→22:47)
--- NOTE | 2018-07-05 08:29 | NEUSURGPN ---
Date of Surgery: 07/03/18 Post Op Day: 2 Assessment/Plan: Assessment:POD#2 sp evacuation of T6-T11 intradural hematoma Plan: -Raise HOB by 10 degrees an hour starting this am at 0800 -Continue GLORIA to thumbprint suction only -Dr Benson reviewed thoracic MRI-report reads compression, Dr Benson feels this is expected compression, otherwise improved -Ok to normalize BP -Continue SDU status for now, if doing well later today with therapies may consider tx to floor -Discussed with Dr. Benson Subjective: Doing well this am, some numbness in left quad Objective: NAD, VSS CN II-XII grossly intact PERRL, EOMI BLE 5/5= hamstrings, quad, DF, PF, EHL, HF GLORIA insertion site-dried blood Dressing CDI with some dried drainage at distal end of dressing Neuro Check Frequency: per routine Urinary Catheter in Place: No Catheter Insertion Date: 07/03/18 - Physician Discussed Patient with Dr.: Benson Neurosurgery Physical Exam - Vitals, I&O, Labs I and O 07/04/18 07/05/18 07/06/18 05:59 05:59 05:59 Intake Total 1822 5138 Output Total 1060 2805 Balance 762 2333 Weight 90.718 kg Intake: Oral (ml) 1000 2275 IV Infused (ml) 822 2863 Ns 1,000 ml @ 100 mls/hr 822 2416 IV CONT FELIPE Rx#: [id number] Phenylephrine HCl 50 mg 447 In Ns 250 ml @ Per Protocol IV CONT FELIPE Rx#: [id number] Output: Urine (ml) 1050 2805 Catheter 1050 2805 GLORIA Drain Output (ml) 10 0 Back Marcell Ortega 10 0 Vital Signs Temp Pulse Resp BP Pulse Ox 37.0 C 51 L 9 L 165/74 H 99 07/04/18 21:00 07/05/18 08:00 07/05/18 08:00 07/05/18 08:00 07/05/18 08:00 Laboratory Results 07/04/18 05:25 07/04/18 05:25 ICD10 Worksheet Patient Problems: Problems Problem Status Onset Subdural hematoma of neuraxis Acute
--- NOTE | 2018-07-05 09:35 | PDINTPN ---
Residence Director Progress Note Assessment/Plan: Assessment/plan: * Back pain-improved * Status post T6-2 L11 laminectomy with evacuation of thoracic subdural hematoma and repair of a dural tear * Rheumatoid arthritis-stable * Asthma-stable * Gastroesophageal reflux disease * History of aortic valve replacement * IgA nephropathy-stable * Disposition-will likely be transferred floor today Subjective: Resting comfortably. Pain well controlled. Hungry. Objective: Vital Signs Temp Pulse Resp BP Pulse Ox 37.0 C 60 19 114/61 98 07/04/18 21:00 07/05/18 09:00 07/05/18 09:00 07/05/18 09:00 07/05/18 09:00 Laboratory Results 07/04/18 05:25 07/04/18 05:25 07/04/18 07/05/18 07/06/18 05:59 05:59 05:59 Intake Total 1822 5138 Output Total 1060 2805 Balance 762 2333 PT 21.4 SEC (12.0-15.0) H 07/04/18 05:25 INR 1.85 (0.83-1.16) H 07/04/18 05:25 - Time Spent With Patient Time Spent With Patient: 35 min of time spent with patient, over 1/2 involved with coordination of care or counseling. Case discussed with spine surgery and nursing Physical Exam - Physical Exam General Appearance: alert, no apparent distress EENT: PERRL/EOMI Neck: non-tender Respiratory: chest non-tender, lungs clear Cardiac/Chest: normal peripheral pulses, regular rate, rhythm, systolic murmur Abdomen: normal bowel sounds, non-tender, soft Male Genitalia: deferred Rectal: deferred Skin: normal color, warm/dry Lymphatic: no adenopathy Extremities: normal range of motion, non-tender, normal inspection, normal capillary refill Neuro/Psych: alert ICD10 Worksheet Patient Problems: Problems Problem Status Onset Subdural hematoma of neuraxis Acute
[2018-07-05] MEDS: FAMOTIDINE 20 MG TAB PO SCH ×2 (09:52→20:22)
[2018-07-05] MEDS: GABAPENTIN 400 MG CAP PO SCH ×2 (09:52→20:21)
[2018-07-05] MEDS: SENNOSIDES/DOCUSATE SODIUM TAB PO SCH ×2 (09:52→20:21)
[2018-07-05] MEDS: METHOCARBAMOL 750 MG TAB PO PRN ×2 (09:58→17:42)
[2018-07-05] MEDS: morphINE PCA 30 MG/30 ML PCA IV PRN (10:06)
[2018-07-05] MEDS: oxyCODONE IR 5 MG TAB PO PRN (11:53)
--- NOTE | 2018-07-05 14:31 | GPROG ---
DATE OF SERVICE: 07/05/2018 I saw and evaluated the patient this morning. Overall, he is doing quite well. He reports marked im provement of pain and improve sensation in both legs. PHYSICAL EXAM: NEUROLOGIC: He does have still a little bit of numbness, tingling in the left leg. He has 4+/5 throughout both lower extremities. His left leg is actually stronger than his right at t his point, which he has a history of weakness there. The drain is in place with serosanguineous flui d without evidence of cerebrospinal fluid leak. The pressure is being maintained by thumbprint only with the GLORIA. IMPRESSION: Postop day 2 status post evacuation of subdural hematoma in the thoracic spine with T6 t o T11 laminectomy. I have communicated with Dr. Benson's team. At this point, we will elevate the h ead of bed slowly and we will get the patient to walk around, hopefully this afternoon, and my guess are we will clear him for transfer to the floor. At this point, we can take him off pressors. We wi ll likely discontinue the Zapata and attempt a trial of void after he is able to get up. He is writte n for oxycodone at this point. We will take the morphine TODDLER CAREGIVER away, and hopefully, this will be adequ ate for pain control for him. /[id number]/MODL
[2018-07-05] MEDS: POLYETHYLENE GLYCOL 3350 17 GM PKT PO PRN (20:20)
[2018-07-06] MEDS: ACETAMINOPHEN 500 MG TAB PO SCH ×3 (05:11→22:48)
[2018-07-06] MEDS: POLYETHYLENE GLYCOL 3350 17 GM PKT PO PRN (05:44)
[2018-07-06] MEDS: oxyCODONE IR 5 MG TAB PO PRN ×5 (05:44→19:34)
[2018-07-06] MEDS: METHOCARBAMOL 750 MG TAB PO PRN (05:45)
[2018-07-06] MEDS: FAMOTIDINE 20 MG TAB PO SCH ×2 (08:30→20:00)
[2018-07-06] MEDS: SENNOSIDES/DOCUSATE SODIUM TAB PO SCH ×2 (08:30→20:00)
[2018-07-06] MEDS: GABAPENTIN 400 MG CAP PO SCH ×2 (08:30→20:00)
--- NOTE | 2018-07-06 10:38 | ASMTCMCOM ---
CM Note CM Note Notes: CM spoke with PT who is recommending [facility] for pt. OT has recommended out-pt rehab. Awaiting doctor's orders. CM will follow. D/C Plan: TBD Date Signed: 07/06/2018 10:38 AM Electronically Signed By:Alesia Fuentes
[2018-07-06] MEDS: MAGNESIUM HYDROXIDE 30 ML UDCUP PO PRN (14:52)
--- NOTE | 2018-07-06 15:50 | ASMTCMCOM ---
CM Note CM Note Notes: CM spoke with Norma at [facility]. OT has also recommended [facility]. They may be able to accept pt on Monday, but more likely would be able to take her on the . They were wondering if pt would rather go to in-pt rehab closer to where he lives ([place]). D/C Plan: Anticipate In-pt Rehab Date Signed: 07/06/2018 03:50 PM Electronically Signed By:Alesia Fuentse
[2018-07-07] MEDS: oxyCODONE IR 5 MG TAB PO PRN ×2 (01:22→05:22)
[2018-07-07] MEDS: ACETAMINOPHEN 500 MG TAB PO SCH ×2 (05:21→15:09)
[2018-07-07] MEDS: FAMOTIDINE 20 MG TAB PO SCH (08:02)
[2018-07-07] MEDS: POLYETHYLENE GLYCOL 3350 17 GM PKT PO PRN (08:02)
[2018-07-07] MEDS: MAGNESIUM HYDROXIDE 30 ML UDCUP PO PRN (08:02)
[2018-07-07] MEDS: SENNOSIDES/DOCUSATE SODIUM TAB PO SCH (08:02)
[2018-07-07] MEDS: GABAPENTIN 400 MG CAP PO SCH (08:02)
[2018-07-07 08:21] VITALS: BP 121/71
--- NOTE | 2018-07-07 13:01 | PDIAF ---
- Diagnosis Code Status: Full Code - Medication Management Discharge Medications: electronically signed and located in the Home Medication List. - Orders Services needed: Home Care, Physical Therapy, Occupational Therapy Home Care Face to Face: I certify that this patient was under my care and that I had the required [id number] encounter meeting the encounter requirements on the discharge day. My findings support the fact that the patient is homebound as defined in Home Care Face to Face Continued: CMS Chapter 7 Medicare Benefits Manual 30.1.1 , The condition of the patient is such that there exists a normal inability to leave home and consequently, leaving home would require a considerable and taxing effort. Diet Recommendation: no restrictions on diet Diet Texture: Regular Texture Diet - Follow Up Care Current Providers and Referrals: DEEPAK ANDRES [Primary Care Provider] -
--- NOTE | 2018-07-07 13:06 | GPROG ---
I evaluated the patient earlier today. Overall, he is doing quite well. He reports that his leg is getting stronger. On physical exam, it is again at least a 4+/5 throughout, limited by pain and positioning. ASSESSMENT AND PLAN: Moving forward we will get the patient discharged tomorrow. We will have physical therapy evaluate what the best plan is to discharge him. He may be overall a good candidate for rehab given his progress but I will certainly leave that at the discretion of our physical therapist completely. He has progressed quite well after this subdural bleed. I will have him follow up with his INR physician, however, I think it certainly is best that he stay on any sort of anticoagulation for at least 1 week and preferably 2 if possible. I will see the patient again tomorrow and more than likely I will state that he is ready for medical discharge tomorrow morning. /[id number]/MODL MTDD
--- NOTE | 2018-07-07 18:23 | ASMTLACE ---
LACE Length of stay for Answers: 3 days current admission Acuity / Level of Answers: Yes Care: Did the patient have an inpatient admission? Comorbidities - select Answers: Congestive heart failure all that apply Mild liver or renal disease Other Notes: HTN # of Emergency department Answers: 0 visits in the last 6 months Score: 11 Date Signed: 07/07/2018 06:23 PM Electronically Signed By:Emilia Garcia RN
--- NOTE | 2018-07-07 18:36 | ASMTDCNOTE ---
Case Management Discharge Discharge Order Complete? Answers: Yes Patient to Obtain Answers: via Family Medications Transportation Arranged Answers: Family/Friends Transport will Pick (Date 07/07/2018 04:00 PM & Time) EMTALA Complete Answers: No Notes: N/A Case Management Transport Answers: No Notes: N/A Form Complete Faxed Final Orders Answers: Yes Notes: Sent via [employer]; confirmed receipt with Jyothi at [facility] Agency/Facility Transfer Answers: Yes Notes: Sent via Report Printed & Faxed to [employer]; confirmed Receiving Agency receipt with Jyothi at [facility] Family Notified Answers: Yes Notes: Son at bedside Discharge Comments Notes: Reviewed chart, spoke with ATIYA Dumas. Pt to discharge today. PT/OT recommend SNF vs HHC. Met with pt to discuss discharge options and needs. Pt requesting to discharge home with home health care. Confirmed pt's address and phone number: [address] [place] [address], . Pt agreeable to homebound status. Pt denies an agency preference other than [facility]. Call placed to [facility], unable to reach anyone. Per website, [facility] provides outpt therapy. Update provided to pt; pt open to other options. Referrals sent. Pt accepted by [facility] and [facility]. Call received from Tylor with [facility]. Per Jyothi, [facility] is able to accept with a start of care for Monday07/08/18 (PT/OT services). Discharge orders and paperwork sent via [employer]; confirmed receipt with [facility]. Update provided to pt and pt's son. CM business card provided with [facility]'s contact information. IM signed, copy placed in chart. Pt to follow up as directed.CM available for any further issues or concerns. Discharge Plan: Home with [facility] Date Signed: 07/07/2018 06:35 PM Electronically Signed By:Emilia Garcia RN
--- NOTE | 2018-07-07 18:37 | ASDISCHSUM ---
Discharge Information Plan Status:Home with Home Health Medically Cleared to Leave:07/06/2018 Discharge Date:07/07/2018 04:04 PM CM D/C Disposition:[facility] D/C Disposition:[id number] Projected Discharge Date:07/07/2018 11:00 AM Transportation at D/C:Family Discharge Delay Reason: Follow-Up Date:07/07/2018 11:00 AM Discharge Slot:2 - 12:01 pm - 18:00 pm Final Diagnosis:Evacuation of hematoma, laminectomy Placement Information Referral Type:*Home Health Care Services Referral ID:[id number] Provider Name:[facility] Address 1:[address] Phone Number: Address 2: Fax Number: City:[place] Selection Factors:First Available Provider; Jose hdez/Family Choice State:[place] Patient Contact Information Contact Name:KALI Relationship: Address: Work Phone: City: [facility] Phone: [facility] Code: Email: Financial Information Financial Class:Medicare Primary Plan Desc:MEDICARE INPATIENT Primary Plan Number:[id number] Secondary Plan Desc:[employer] Secondary Plan Number:[id number] Assessment Information LACE LACE Length of stay for Answers: 3 days current admission Acuity / Level of Answers: Yes Care: Did the patient have an inpatient admission? Comorbidities - select Answers: Congestive heart failure all that apply Mild liver or renal disease Other Notes: HTN # of Emergency department Answers: 0 visits in the last 6 months Score: 11 Date Signed: 07/07/2018 06:23 PM Electronically Signed By:Emilia Garcia RN [facility] Initial CM Assessment Living Arrangements What is your living Answers: With Spouse arrangement? Who do you live with? Type Of Residence What kind of residence do Answers: House you live in? Discharge Plan Comments Coordination Status Comments Notes: Patient is a 68yo male who comes to [facility] for an intradural hematoma evacuation from caudal T6 to cranial T11 levels with spinal cord decompression. OT/PT have been ordered for the patient. D/C plan TBD. CM will follow. Date Signed: 07/04/2018 11:56 AM Electronically Signed By:LEILANI GomezW [facility] CM Progress Note CM Note CM Note Notes: CM spoke with PT who is recommending [facility] for pt. OT has recommended out-pt rehab. Awaiting doctor's orders. CM will follow. D/C Plan: TBD Date Signed: 07/06/2018 10:38 AM Electronically Signed By:Alesia Fuentes [facility] CM Progress Note CM Note CM Note Notes: CM spoke with Norma at [facility]. OT has also recommended [facility]. They may be able to accept pt on Monday, but more likely would be able to take her on the . They were wondering if pt would rather go to in-pt rehab closer to where he lives ([place]). D/C Plan: Anticipate In[facility]pt Rehab Date Signed: 07/06/2018 03:50 PM Electronically Signed By:Alesia Fuentes Case Management Discharge Plan Note Case Management Discharge Discharge Order Complete? Answers: Yes Patient to Obtain Answers: via Family Medications Transportation Arranged Answers: Family/Friends Transport will Pick (Date 07/07/2018 04:00 PM & Time) EMTALA Complete Answers: No Notes: N/A Case Management Transport Answers: No Notes: N/A Form Complete Faxed Final Orders Answers: Yes Notes: Sent via [employer]; confirmed receipt with Jyothi at [facility] Agency/Facility Transfer Answers: Yes Notes: Sent via Report Printed & Faxed to [employer]; confirmed Receiving Agency receipt with Jyothi at [facility] Family Notified Answers: Yes Notes: Son at bedside Discharge Comments Notes: Reviewed chart, spoke with ATIYA Dumas. Pt to discharge today. PT/OT recommend SNF vs [facility]. Met with pt to discuss discharge options and needs. Pt requesting to discharge home with home health care. Confirmed pt's address and phone number: [address] [place] [address], . Pt agreeable to homebound status. Pt denies an agency preference other than [facility]. Call placed to [facility], unable to reach anyone. Per website, [facility] provides outpt therapy. Update provided to pt; pt open to other options. Referrals sent. Pt accepted by [facility] and [facility]. Call received from Jyothi with [facility]. Per Jyothi, [facility] is able to accept with a start of care for Monday07/08/18 (PT/OT services). Discharge orders and paperwork sent via [employer]; confirmed receipt with [employer]. Update provided to pt and pt's son. CM business card provided with [facility]'s contact information. IM signed, copy placed in chart. Pt to follow up as directed.CM available for any further issues or concerns. Discharge Plan: Home with [facility] Date Signed: 07/07/2018 06:35 PM Electronically Signed By:Emilia Garcia RN Intervention Information Intervention Type:*Incorrect Registration Date of Service:07/04/2018 09:29 AM Patient Type:Observation Staff Member:Amy Yap Hours: Discipline: Severity: Comment: Intervention Type:*IM-Signed Date of Service:07/07/2018 06:26 PM Patient Type:Inpatient Staff Member:ATIYA Garcia Taylor Hours: Discipline: Severity: Comment:
== END 2018-07-07 16:04 | disposition home health service (06) | DRG 908 ==
LOC: F3N 15:43 → EDSTATUS 16:30 → F2N 21:22 → OBSVTOIN 21:41 → F3N 07-05 15:27
PROVIDERS: ADMIT Orthopaedic Surgery Orthopaedic Surgery of the Spine; ATTEND Orthopaedic Surgery Orthopaedic Surgery of the Spine
DX: G97.62 Postprocedural hematoma of a nervous system organ or structure following other procedure (principal); N02.8 Recurrent and persistent hematuria with other morphologic changes; G83.9 Paralytic syndrome, unspecified; I11.0 Hypertensive heart disease with heart failure; I50.9 Heart failure, unspecified; J45.909 Unspecified asthma, uncomplicated; K21.9 Gastro-esophageal reflux disease without esophagitis; M06.9 Rheumatoid arthritis, unspecified; Z87.311 Personal history of (healed) other pathological fracture; Z95.4 Presence of other heart-valve replacement
CPT/HCPCS: 97110-GP; 97116-GP; 97162-GP; 97166-GO; 97530-GO; 97530-GP; 97535-GO; G8978-GP-CM; G8979-GP-CI; G8987-GO-CK; G8988-GO-CJ; J0690; J1100; J2250; J2270; J2370; J2704; J3010; J3360; J3370